=== PATIENT | female | born 1980 | race Caucasian/White ===

== ENCOUNTER → 2016-11-22 | Outpatient (CLI) | payer OTHER, SELFPAY ==
[~2016-11-22] MED LIST: MOTRIN-DPS800 MG PO; TYLENOL EXTRA500 M1 PO
== END | disposition home or self-care (01) ==
LOC: RAD.S 12:57
DX: N64.4 Mastodynia (principal); N63 Unspecified lump in breast; N60.01 Solitary cyst of right breast

== ENCOUNTER → 2017-05-22 | Outpatient (CLI) | payer OTHER | END | disposition home or self-care (01) | LOC: RAD.S 10:59 | DX: N60.01 Solitary cyst of right breast (principal); N64.89 Other specified disorders of breast ==